=== PATIENT | female | born 1970 | race Caucasian/White ===

== ENCOUNTER 2022-08-11 18:33 | Emergency (ER) | payer MEDICAID ==
--- NOTE | 2022-08-11 18:45 | NUR ---
PT CALLED TO TRIAGE NO RESPONSE
--- NOTE | 2022-08-11 18:59 | NUR ---
PT CALLED TO TRIAGE NO RESPONSE
--- NOTE | 2022-08-11 19:12 | NUR ---
PT CALLED NO RESPONSE, PATIENT LEFT WITHOUT BEING SEEN BY DR. CRISTOBAL. NO FURTHER CARE PROVIDED FOR PATIENT.
== END 2022-08-11 18:45 | disposition left against medical advice (07) ==
LOC: MED 18:33
DX: R42 Dizziness and giddiness (principal); R20.0 Anesthesia of skin; Z53.21 Procedure and treatment not carried out due to patient leaving prior to being seen by health care provider